=== PATIENT | female | born 1975 | race Hispanic/Latino ===

== ENCOUNTER 2021-09-28 13:53 | Emergency (ER) | payer SELFPAY ==
--- NOTE | 2021-09-28 14:23 | Emergency Department Report ---
ED General Adult HPI - General Chief complaint: Headache Stated complaint: ACUTE HEADACHE Time Seen by Provider: 09/28/21 14:06 Source: patient, EMS Mode of arrival: Stretcher Limitations: No Limitations - History of Present Illness Initial comments: Patient presents with complaints of headache x 30 minutes, bifrontal and @ anterior vertex, non radiating, 7/10, not worsened or relieved by anything, associated with blurry vision and mild neck stiffness. Denies numbness, weakness, rhinorrhea, nasal congestion. Severity scale (0 -10): 0 - Related Data Home Medications Medication Instructions Recorded Confirmed Last Taken NexIUM 40 mg PO QDAY 09/28/21 09/28/21 1 Day Ago ~09/27/21 Allergies Allergy/AdvReac Type Severity Reaction Status Date / Time Penicillins Allergy Unknown Verified 09/28/21 14:32 ED Review of Systems ROS: Stated complaint: ACUTE HEADACHE Other details as noted in HPI Comment: All other systems reviewed and negative Constitutional: denies: chills, fever ED Past Medical Hx - Past Medical History Previous Medical History?: No - Medications Home Medications: Home Medications Medication Instructions Recorded Confirmed Last Taken Type NexIUM 40 mg PO QDAY 09/28/21 09/28/21 1 Day Ago History ~09/27/21 ED Physical Exam - General Limitations: No Limitations General appearance: alert, in no apparent distress - Head Head exam: Present: atraumatic, normocephalic - Eye Eye exam: Present: PERRL, EOMI - ENT ENT exam: Present: mucous membranes moist, other (airway patent) - Neck Neck exam: Present: other (supple; no JVD) - Respiratory Respiratory exam: Present: other (good air entry, nml I:E, CTAB, no use of SHAY) - Cardiovascular Cardiovascular Exam: Present: regular rate. Absent: rubs, gallop - GI/Abdominal GI/Abdominal exam: Present: soft, normal bowel sounds. Absent: distended, tenderness - Extremities Exam Extremities exam: Present: full ROM. Absent: tenderness - Back Exam Back exam: Present: full ROM. Absent: tenderness - Neurological Exam Neurological exam: Present: alert, oriented X3, CN II-XII intact, other (motor 5/5 globally; sensation intact globally; neg Kernig's and Brudzinski's signs; NIH 0) - Skin Skin exam: Present: warm, normal color ED Course Vital Signs 09/28/21 09/28/21 09/28/21 13:58 14:17 14:28 Temperature 98.8 F 98.6 F Pulse Rate 66 68 Respiratory 16 Rate Blood Pressure Blood Pressure 139/78 129/78 [Left] O2 Sat by Pulse 100 98 100 Oximetry 09/28/21 09/28/21 09/28/21 14:30 14:33 18:06 Temperature 98.3 F Pulse Rate 69 Respiratory 16 18 Rate Blood Pressure 145/80 Blood Pressure 122/67 [Left] O2 Sat by Pulse 100 99 99 Oximetry ED Medical Decision Making - Lab Data Result diagrams: 09/28/21 14:50 09/28/21 14:50 Laboratory Results - last 72 hr 09/28/21 09/28/21 09/28/21 14:33 14:33 14:50 WBC 7.6 RBC 4.11 Hgb 12.4 Hct 37.7 MCV 92 MCH 30 MCHC 33 RDW 13.8 Plt Count 316 Lymph % (Auto) 28.2 [place] % (Auto) 5.5 Eos % (Auto) 2.4 Baso % (Auto) 0.7 Lymph # (Auto) 2.1 [place] # (Auto) 0.4 Eos # (Auto) 0.2 Baso # (Auto) 0.1 Seg Neutrophils % 63.2 Seg Neutrophils # 4.8 ESR 8 Sodium Potassium Chloride Carbon Dioxide Anion Gap BUN Creatinine Estimated GFR BUN/Creatinine Ratio Glucose Calcium Total Bilirubin AST ALT Alkaline Phosphatase Troponin T Total Protein Albumin Albumin/Globulin Ratio Urine HCG, Qual Negative Urine Opiates Screen Negative Urine Methadone Screen Negative Ur Barbiturates Screen Negative Ur Phencyclidine Scrn Negative Ur Amphetamines Screen Negative U Benzodiazepines Scrn Negative Urine Cocaine Screen Negative U Marijuana (THC) Screen Negative Drugs of Abuse Note Disclamer 09/28/21 09/28/21 14:50 14:50 WBC RBC Hgb Hct MCV MCH MCHC RDW Plt Count Lymph % (Auto) [place] % (Auto) Eos % (Auto) Baso % (Auto) Lymph # (Auto) [place] # (Auto) Eos # (Auto) Baso # (Auto) Seg Neutrophils % Seg Neutrophils # ESR Sodium 141 Potassium 3.5 L Chloride 110.0 H Carbon Dioxide 19 L Anion Gap 16 BUN 8 Creatinine 0.8 Estimated GFR > 60 BUN/Creatinine Ratio 10 Glucose 80 Calcium 8.1 L Total Bilirubin < 0.20 AST 10 ALT 7 Alkaline Phosphatase 63 Troponin T < 0.010 Total Protein 5.2 L Albumin 3.5 L Albumin/Globulin Ratio 2.1 Urine HCG, Qual Urine Opiates Screen Urine Methadone Screen Ur Barbiturates Screen Ur Phencyclidine Scrn Ur Amphetamines Screen U Benzodiazepines Scrn Urine Cocaine Screen U Marijuana (THC) Screen Drugs of Abuse Note CT head: no acute intracranial process EKG: HR 54, Sr, n ml intervals, no significant STR changes in contiguous leads - Medical Decision Making Likely 2/2 migraine vs tension LIZARRAGA. SAH, ICH, meningitis, intracranial space occupying lesion unlikely. Received morphine 2 mg IV x 1, zofran 4 mg IV x 1. LIZARRAGA resolved. Denies neck stiffness, numbness, weakness, changes in vision. Critical care attestation.: If time is entered above; I have spent that time in minutes in the direct care of this critically ill patient, excluding procedure time. ED Disposition Clinical Impression: Headache Disposition: 01 HOME / SELF CARE / HOMELESS Is pt being admited?: No Does the pt Need Aspirin: No Condition: Stable Instructions: General Headache Without Cause Additional Instructions: Return to the ER if your symptoms worsen Referrals: JAUN ALEGRE MD [Primary Care Provider] - 3-5 Days Time of Disposition: 17:00 (Suggested admission for obs for patient but patient insisted on being discharged home. Patient has capacity and indicated understanding of instructions. )
[2021-09-28] MEDS ORDERED: MORPHINE 4 MG/1 ML INJ IV ONE (14:34)
[2021-09-28] MEDS ORDERED: ONDANSETRON 4 MG/2 ML INJ IV ONE (14:34)
[2021-09-28 15:02] LABS: Amphetamine Screen,Urine Negative; Benzodiazepines Screen,Urine Negative; Cannabinoid Screen,Urine Negative; Cocaine Screen,Urine Negative; Methadone Screen,Urine Negative; Opiate Screen,Urine Negative
--- NOTE | 2021-09-28 15:29 | Cat Scan Report ---
CT BRAIN: 09/28/2021 INDICATION / CLINICAL INFORMATION: Headache; blurry vision. COMPARISON: None available. FINDINGS: BRAIN/INTRACRANIAL STRUCTURES: Unenhanced CT images of the brain demonstrate no evidence of acute abn ormality. Ventricles and sulci are normal in size and shape. There is no evidence of hemorrhage or mass. There are no abnormal extra-axial fluid collections. EXTRACRANIAL STRUCTURES: Unremarkable. IMPRESSION: No acute abnormality All CT scans at this location are performed using dose reduction to ALARA by means of automated expos ure control. Signer Name: Carlos Eduardo Galvan MD Signed: 09/28/2021 3:25 PM Workstation Name: [id number]
[2021-09-28 15:35] LABS: Alanine Aminotransferase 7 units/L (7-56); Albumin 3.5 g/dL (3.9-5); BUN/Creatinine Ratio 10; Blood Urea Nitrogen 8 mg/dL (7-17); Calcium 8.1 mg/dL (8.4-10.2); Hemolysis Index 22
[2021-09-28 16:21] LABS: HCG Qualitative,Urine Negative (Negative)
[2021-09-28 16:47] LABS: Basophils # (Auto) 0.1 K/mm3 (0.0-0.1); Basophils % (Auto) 0.7 % (0.0-1.8); Eosinophils # (Auto) 0.2 K/mm3 (0.0-0.4); Eosinophils % (Auto) 2.4 % (0.0-4.3); Hematocrit 37.7 % (30.3-42.9); Hemoglobin 12.4 gm/dl (10.1-14.3); Lymphocytes # (Auto) 2.1 K/mm3 (1.2-5.4); Lymphocytes % (Auto) 28.2 % (13.4-35.0); Mean Corpuscular HGB Conc 33 % (30-34); Mean Corpuscular Volume 92 fl (79-97); Monocytes # (Auto) 0.4 K/mm3 (0.0-0.8); Monocytes % (Auto) 5.5 % (0.0-7.3); Platelet Count 316 K/mm3 (140-440); Red Blood Count 4.11 M/mm3 (3.65-5.03); Red Cell Distribution Width 13.8 % (13.2-15.2)
[2021-09-28 17:07] LABS: Erythrocyte Sedimentation Rate 8 mm/Hr (0-20)
[2021-09-28 18:06] VITALS: BP 122/67
--- NOTE | 2021-09-30 16:56 | Electrocardiograph Report ---
[facility] Test Date: 2021-09-28 Test Time: 15:18:26 Pat Name: ILIA GREGORY Department: Room: Gender: F Housing Coordinator: AKSHAT : 1975 Requested By: SIMA ORTEZ Order Number: [id number] Reading MD: Anthony Liriano Measurements Intervals [place] Rate: 55 P: 75 [place]: 132 QRS: 68 QRSD: 82 T: 49 QT: 439 QTc: 419 Interpretive Statements Sinus rhythm T wave inversion, consider anterior ischemia No previous ECG available for comparison Electronically Signed On 09-30-2021 16:55:35 EDT by Anthony Liriano
== END 2021-09-28 18:06 | disposition home or self-care (01) ==
LOC: ED 13:53
DX: R51.9 Headache, unspecified (principal); Z88.0 Allergy status to penicillin; Z79.899 Other long term (current) drug therapy
CPT/HCPCS: 36415; 70450; 80053; 80307; 81025; 84484; 85025; 85652; 93005; 96374; 96375; 99284; J2270; J2405